=== PATIENT | male | born 1955 | race Caucasian/White ===

== ENCOUNTER 2019-08-27 06:20 | Inpatient (IN) ==
[~2019-08-27 06:20] MED LIST: Vancomycin 1,000 MG, Sodium Chloride IRRigation 1,000 ML IR ONE
[2019-08-27] MEDS ORDERED: Acetaminophen IV 1,000 MG/100 ML INFUS..BTL IVPB ONE (07:08)
[2019-08-27] MEDS ORDERED: *HR* Phenylephrine 10 MG/ML VIAL ONE (07:08)
[2019-08-27] MEDS ORDERED: *HR* Succinylcholine 200 MG/10 ML VIAL IVP ONE (07:08)
[2019-08-27] MEDS ORDERED: Famotidine 20 MG/2 ML VIAL IVP ONE (07:08)
[2019-08-27] MEDS ORDERED: traMADol 50 MG TABLET PO ONE (07:09)
[2019-08-27] MEDS ORDERED: Heparin 1,000 UNITS/500 mL 0 ML ONE (07:09)
[2019-08-27] MEDS ORDERED: Ringers Solution, Lactated 1,000 ML IVC SCH (07:15)
[2019-08-27] MEDS ORDERED: CeFAZolin Syr 2,000MG/20 ML 2,000 MG/20 ML SYRINGE IVPB ONE (07:48)
[2019-08-27] MEDS ORDERED: *HR* Remifentanil 2 MG VIAL IVP ONE (08:35)
[2019-08-27] MEDS ORDERED: *HR* Midazolam HCl 2 MG/2 ML VIAL ONE (08:38)
[2019-08-27] MEDS ORDERED: *HR* FentaNYL (PF) 100 MCG/2 ML VIAL ONE ×2 (08:38→10:02)
[2019-08-27] MEDS ORDERED: *HR* PHENYLEPHRINE 1,000 MCG/10 ML SYRINGE IVP ONE (08:40)
[2019-08-27] MEDS ORDERED: EPHEDrine 50 MG/ML VIAL ONE (08:40)
[2019-08-27] MEDS ORDERED: *HR* Propofol 200 MG/20 ML VIAL IVP ONE ×2 (08:42→11:25)
[2019-08-27] MEDS ORDERED: Lidocaine -MPF 2% 2 ML VIAL ONE (08:42)
[2019-08-27] MEDS ORDERED: Dexamethasone 4 MG/ML VIAL ONE (08:45)
[2019-08-27] MEDS ORDERED: *HR* Heparin 5,000 UNIT/ML VIAL ONE (08:45)
[2019-08-27] MEDS ORDERED: Ondansetron 4 MG/2 ML VIAL ONE (08:45)
[2019-08-27] MEDS ORDERED: Protamine Sulfate 50 MG/5 ML VIAL IVP ONE (09:45)
[2019-08-27] MEDS ORDERED: Bupivacaine-MPF 0.25% 10 ML VIAL ONE (09:45)
[2019-08-27] MEDS ORDERED: Heparin 1,000 UNITS/500 mL 1,000 ML ONE (09:46)
[2019-08-27] MEDS ORDERED: *HR* Labetalol 20 MG/4 ML SYRINGE IVP PRN (14:01)
[2019-08-27] MEDS ORDERED: Dextrose Gel 15 GM/37.5 ML TUBE PO PRN ×2 (14:01)
[2019-08-27] MEDS ORDERED: Ondansetron 4 MG/2 ML VIAL IVP PRN (14:01)
[2019-08-27] MEDS ORDERED: *HR* OxyCODONE Immed Rel 5 MG TABLET PO PRN (14:01)
[2019-08-27] MEDS ORDERED: D5% in Water 1,000 ML IVC PRN (14:01)
[2019-08-27] MEDS ORDERED: *HR* HYDROcodone/Acet 5/325 mg TABLET PO PRN (14:01)
[2019-08-27] MEDS ORDERED: *HR* Dextrose 50 % in Water (Syg) 50 ML SYRINGE IVP PRN (14:01)
[2019-08-27] MEDS ORDERED: Naloxone 0.4 MG/ML INJ IVP PRN (14:01)
[2019-08-27] MEDS ORDERED: Acetaminophen 325 MG TABLET PO PRN (14:01)
[2019-08-27] MEDS ORDERED: 0.9 % Sodium Chloride 1,000 ML IVC SCH (14:01)
[2019-08-27] MEDS: *HR* Metoprolol 5 MG/5 ML VIAL IVP SCH (16:42)
[2019-08-27] MEDS: Insulin LISPRO 300 UNITS/3 ML VIAL SQ SCH (17:40)
[2019-08-27] MEDS ORDERED: Insulin LISPRO 300 UNITS/3 ML VIAL SQ SCH (21:00)
[2019-08-28] MEDS: *HR* Metoprolol 5 MG/5 ML VIAL IVP SCH ×2 (02:50→05:12)
[2019-08-28] MEDS ORDERED: *HR* Heparin 5,000 UNIT/ML VIAL SQ SCH ×2 (06:00)
[2019-08-28] MEDS: Insulin LISPRO 300 UNITS/3 ML VIAL SQ SCH (08:01)
[2019-08-28] MEDS ORDERED: Aspirin Enteric Coated 81 MG Tablet PO SCH (09:00)
[2019-08-28 11:35] VITALS: BP 179/83
[2019-08-28] MEDS ORDERED: amLODIPine 5 MG TABLET PO SCH (21:00)
== END 2019-08-28 12:00 | disposition home or self-care (01) | DRG 39 ==
LOC: SAMDAY 06:20 → 2NNU 13:52
PROVIDERS: ADMIT Surgery; ATTEND Surgery

== ENCOUNTER 2021-08-30 09:58 | Inpatient (IN) ==
[2021-08-30] MEDS ORDERED: hydrALAZINE 10 MG TABLET PO ONE ×2 (10:47→12:54)
[2021-08-30 11:24] LABS: Basophils # 0.1 K/mcL (0.0-0.2); Basophils % 0.7 %; Eosinophils # 0.3 K/mcL (0.0-0.6); Eosinophils % 2.7 %; Hemoglobin 9.9 g/dL (12.9-16.9); Immature Granulocytes % 0.4 % (0-4); Lymphocytes # 1.6 K/mcL (0.6-4.6); Lymphocytes % 16.9 %; Mean Corpuscular HGB Conc 34.1 g/dL (31.6-35.5); Mean Corpuscular Hemoglobin 30.3 pg (28.0-33.3); Mean Corpuscular Volume 88.7 fL (83.0-100.0); Monocytes # 0.9 K/mcL (0.0-1.3); Monocytes % 9.3 %; Neutrophils # 6.4 K/mcL (1.6-8.9); Platelet Count 291 K/mcL (140-400); Red Blood Count 3.27 M/mcL (4.19-5.50); Red Cell Distribution Width 12.3 % (11.5-14.5); White Blood Count 9.2 K/mcL (4.3-11.1)
[2021-08-30 11:32] LABS: Prothrombin Time 11.3 Seconds (9.4-12.1)
[2021-08-30 11:47] LABS: Calcium 8.5 mg/dL (8.6-10.3); Potassium 3.8 mEq/L (3.5-5.1); Troponin I 0.03 ng/mL (< 0.04)
[2021-08-30 11:57] LABS: Activated Partial Thrombo Time 29.9 Seconds (26.0-36.0)
[2021-08-30] MEDS ORDERED: 0.9 % Sodium Chloride 1,000 ML IVC ONE (13:11)
[2021-08-30] MEDS ORDERED: Acetaminophen 325 MG TABLET PO PRN (13:48)
[2021-08-30] MEDS ORDERED: D5% in Water 1,000 ML IVC PRN (13:48)
[2021-08-30] MEDS ORDERED: Naloxone 0.4 MG/ML INJ IVP PRN (13:48)
[2021-08-30] MEDS ORDERED: *HR* Dextrose 50 % in Water (Syg) 50 ML SYRINGE IVP PRN (13:48)
[2021-08-30] MEDS ORDERED: Dextrose Gel 15 GM/37.5 ML TUBE PO PRN ×2 (13:48)
[2021-08-30] MEDS ORDERED: Ondansetron 4 MG/2 ML VIAL IVP PRN (13:48)
[2021-08-30] MEDS ORDERED: amLODIPine 5 MG TABLET PO ONE (13:54)
[2021-08-30] MEDS: 0.9 % Sodium Chloride 1,000 ML IVC SCH (16:57)
[2021-08-30] MEDS: Insulin LISPRO 300 UNITS/3 ML VIAL SUBQ SCH (17:54)
[2021-08-30] MEDS: *HR* Heparin 5,000 UNIT/ML VIAL SQ SCH (18:27)
[2021-08-30] MEDS: Melatonin 3 MG TABLET PO SCH (19:50)
[2021-08-31 01:57] LABS: Basophils % 0.3 %; Eosinophils # 0.2 K/mcL (0.0-0.6); Eosinophils % 2.2 %; Hematocrit 26.5 % (37.5-50.1); Hemoglobin 9.1 g/dL (12.9-16.9); Immature Granulocytes % 0.3 % (0-4); Lymphocytes % 21.6 %; Mean Corpuscular HGB Conc 34.3 g/dL (31.6-35.5); Mean Corpuscular Hemoglobin 30.6 pg (28.0-33.3); Mean Corpuscular Volume 89.2 fL (83.0-100.0); Mean Platelet Volume 10.4 fL (9.4-12.4); Monocytes # 0.9 K/mcL (0.0-1.3); Monocytes % 9.8 %; Neutrophils # 6.2 K/mcL (1.6-8.9); Platelet Count 280 K/mcL (140-400); Red Blood Count 2.97 M/mcL (4.19-5.50); Red Cell Distribution Width 12.4 % (11.5-14.5); Segmented Neutrophils % 65.8 %; White Blood Count 9.4 K/mcL (4.3-11.1)
[2021-08-31 02:23] LABS: BUN/Creatinine Ratio 11 (6-26); Blood Urea Nitrogen 38 mg/dL (8-23); Carbon Dioxide 23 mEq/L (23-29); Chloride 107 mEq/L (98-107); Chol/HDL Ratio 5.6 (0-4.9); Cholesterol 158 mg/dL (< 200); Glucose 270 mg/dL (70-105); HDL Cholesterol 28 mg/dL (40-59); Osmolality,Calculated 311 (280-300); Potassium 3.5 mEq/L (3.5-5.1); Sodium 141 mEq/L (136-145); Triglycerides 551 mg/dL (< 150); eGFR For African Americans 21 (> 60); eGFR For Non-African Americans 18 (> 60)
[2021-08-31 02:24] LABS: Iron 46 mcg/dL (65-175)
[2021-08-31 02:36] LABS: Ferritin 47 ng/mL (20-250)
[2021-08-31] MEDS: *HR* Heparin 5,000 UNIT/ML VIAL SQ SCH ×2 (04:05→18:05)
[2021-08-31 07:15] LABS: Sodium, Urine 68.7 mEq/L
[2021-08-31] MEDS: Insulin LISPRO 300 UNITS/3 ML VIAL SUBQ SCH ×3 (08:08→18:04)
[2021-08-31] MEDS: amLODIPine 5 MG TABLET PO SCH (08:08)
[2021-08-31] MEDS: 0.9 % Sodium Chloride 1,000 ML IVC SCH ×2 (08:14→21:12)
[2021-08-31 17:39] LABS: Bacteria,Urine Few per hpf (None-Few); Mucus,Urine Few per lpf (None-Few); RBC,Urine 0-3 per hpf (0-3); WBC,Urine 0-3 per hpf (0-3)
[2021-08-31 17:51] LABS: Bilirubin,Urine Negative (Negative); Blood,Urine Trace (Negative); Clarity,Urine Clear (Clear); Color,Urine Colorless (Yellow); Glucose,Urine (UA) 150 mg/dL (Normal); Ketones,Urine Negative (Negative); Leukocyte Esterase,Urine Negative (Negative); Nitrite,Urine Negative (Negative); Protein,Urine >=300 mg/dL (Neg-Trace); Specific Gravity,Urine 1.013 (1.010-1.025); Urobilinogen,Urine Normal (Normal)
[2021-08-31 18:10] LABS: Creatinine,Urine 64 mg/dL; Microalbumin,Urine > 1350 mg/L; Protein/Creatinine Ratio,Urine 4.95 mg/mg (0.00-0.20)
[2021-08-31 19:15] LABS: % Iron Saturation 14 % (20-55); Transferrin 235 mg/dL (203-362)
[2021-08-31] MEDS: Melatonin 3 MG TABLET PO SCH (21:11)
[2021-09-01] MEDS: 0.9 % Sodium Chloride 1,000 ML IVC SCH ×2 (03:03→04:58)
[2021-09-01] MEDS: *HR* Heparin 5,000 UNIT/ML VIAL SQ SCH ×2 (04:57→17:02)
[2021-09-01 07:30] LABS: Basophils % 0.3 %; Eosinophils # 0.2 K/mcL (0.0-0.6); Eosinophils % 2.7 %; Hematocrit 26.1 % (37.5-50.1); Hemoglobin 8.9 g/dL (12.9-16.9); Immature Granulocytes % 0.5 % (0-4); Lymphocytes # 1.9 K/mcL (0.6-4.6); Mean Corpuscular HGB Conc 34.1 g/dL (31.6-35.5); Mean Corpuscular Hemoglobin 30.3 pg (28.0-33.3); Mean Corpuscular Volume 88.8 fL (83.0-100.0); Mean Platelet Volume 10.3 fL (9.4-12.4); Monocytes # 0.6 K/mcL (0.0-1.3); Monocytes % 7.3 %; Platelet Count 247 K/mcL (140-400); Red Blood Count 2.94 M/mcL (4.19-5.50); Red Cell Distribution Width 12.5 % (11.5-14.5); Segmented Neutrophils % 68.2 %; White Blood Count 8.8 K/mcL (4.3-11.1)
[2021-09-01 07:34] LABS: Potassium 3.5 mEq/L (3.5-5.1)
[2021-09-01 07:35] LABS: Calcium 8.4 mg/dL (8.6-10.3); Phosphorous 3.1 mg/dL (2.7-4.5); Uric Acid 6.7 mg/dL (2.3-7.6)
[2021-09-01 07:47] LABS: Thyroid Stimulating Hormone 3.851 mcIU/mL (0.340-5.600)
[2021-09-01] MEDS: amLODIPine 5 MG TABLET PO SCH (08:08)
[2021-09-01] MEDS: Insulin LISPRO 300 UNITS/3 ML VIAL SUBQ SCH ×3 (08:09→17:03)
[2021-09-01] MEDS: hydrALAZINE 25 MG TABLET PO SCH ×2 (08:16→17:03)
[2021-09-01] MEDS ORDERED: Perflutren Lipid Microsphere 1.3 ML in 0.9 % Sodium Chloride 8.7 ML IVP PRN (17:04)
[2021-09-01] MEDS: Melatonin 3 MG TABLET PO SCH (20:39)
[2021-09-01 22:44] LABS: Hepatitis B Surface Antigen Nonreactive (Nonreactive)
[2021-09-01 23:12] LABS: Hepatitis C Virus Antibody Nonreactive (Nonreactive)
[2021-09-01 23:13] LABS: Hepatitis B Core IgM Nonreactive (Nonreactive)
[2021-09-01 23:17] LABS: Hepatitis A Antibody IgM Nonreactive (Nonreactive)
[2021-09-02] MEDS: hydrALAZINE 25 MG TABLET PO SCH ×3 (00:06→14:28)
[2021-09-02 01:22] LABS: Vitamin D 25 Hydroxy 12 ng/mL (30-80)
[2021-09-02] MEDS: *HR* Heparin 5,000 UNIT/ML VIAL SQ SCH ×2 (05:26→14:56)
[2021-09-02] MEDS: Insulin LISPRO 300 UNITS/3 ML VIAL SUBQ SCH ×3 (09:11→15:26)
[2021-09-02] MEDS: amLODIPine 5 MG TABLET PO SCH (09:23)
[2021-09-02] MEDS ORDERED: Ergocalciferol (VIT D2) 50,000 UNIT (1.25MG) CAP PO SCH (12:45)
[2021-09-02 13:05] LABS: Basophils % 0.2 %; Eosinophils # 0.3 K/mcL (0.0-0.6); Eosinophils % 1.8 %; Hematocrit 28.2 % (37.5-50.1); Hemoglobin 9.6 g/dL (12.9-16.9); Immature Granulocytes % 0.4 % (0-4); Lymphocytes # 1.8 K/mcL (0.6-4.6); Lymphocytes % 12.5 %; Mean Corpuscular Hemoglobin 30.5 pg (28.0-33.3); Mean Corpuscular Volume 89.5 fL (83.0-100.0); Mean Platelet Volume 10.4 fL (9.4-12.4); Monocytes % 6.7 %; Platelet Count 291 K/mcL (140-400); Red Blood Count 3.15 M/mcL (4.19-5.50); Red Cell Distribution Width 12.7 % (11.5-14.5); Segmented Neutrophils % 78.4 %
[2021-09-02 13:06] LABS: Monocytes # 0.9 K/mcL (0.0-1.3); Neutrophils # 11.1 K/mcL (1.6-8.9); White Blood Count 14.1 K/mcL (4.3-11.1)
[2021-09-02 13:35] LABS: Calcium 8.3 mg/dL (8.6-10.3); Potassium 3.8 mEq/L (3.5-5.1)
[2021-09-02 14:11] LABS: Magnesium 1.3 mg/dL (1.6-2.6)
[2021-09-02] MEDS ORDERED: cloNIDine HCL 0.1 MG TABLET PO SCH (15:00)
[2021-09-02 15:41] VITALS: BP 181/74; PULSE 82; TEMP 97.9; O2SAT 95
[2021-09-05 08:06] LABS: Alpha 2 Globulin (PEP) 1.19 g/dL (0.48-1.05); Beta Globulin (PEP) 0.82 g/dL (0.48-1.10)
[2021-09-05 10:45] LABS: IFE Reflexed IFE Done; Immunoglobulin A 50 mg/dL (68-408); Immunoglobulin G 278 mg/dL (768-1632); Immunoglobulin M 219 mg/dL (35-263)
== END 2021-09-02 16:51 | disposition home or self-care (01) | DRG 684 ==
LOC: EMEROOARM 09:58 → 2ANU 09:58 → SUATTDRO 15:41 → 2ANU 16:07
PROVIDERS: ADMIT Pharmacist; ATTEND Hospitalist

== ENCOUNTER 2021-10-19 09:21 | Inpatient (IN) ==
[2021-10-19 11:33] LABS: Basophils % 0.2 %; Eosinophils # 0.1 K/mcL (0.0-0.6); Eosinophils % 1.8 %; Hematocrit 30.3 % (37.5-50.1); Hemoglobin 9.7 g/dL (12.9-16.9); Immature Granulocytes % 0.2 % (0-4); Lymphocytes # 1.5 K/mcL (0.6-4.6); Lymphocytes % 29.9 %; Mean Corpuscular Hemoglobin 28.9 pg (28.0-33.3); Mean Corpuscular Volume 90.2 fL (83.0-100.0); Mean Platelet Volume 10.5 fL (9.4-12.4); Monocytes # 0.6 K/mcL (0.0-1.3); Monocytes % 12.5 %; Platelet Count 222 K/mcL (140-400); Red Blood Count 3.36 M/mcL (4.19-5.50); Red Cell Distribution Width 12.9 % (11.5-14.5); Segmented Neutrophils % 55.4 %
[2021-10-19 11:44] LABS: Neutrophils # 2.8 K/mcL (1.6-8.9)
[2021-10-19 12:02] LABS: Calcium 8.7 mg/dL (8.6-10.3); Potassium 3.7 mEq/L (3.5-5.1)
[2021-10-19 12:08] LABS: Influenza A PCR Negative (Negative); Influenza B PCR Negative (Negative); Resp. Syncytial Virus PCR Negative (Negative)
[2021-10-19 12:12] LABS: SARS-CoV-2 by PCR (In House) Positive (Negative)
[2021-10-19 12:16] LABS: Troponin I 0.25 ng/mL (< 0.04)
[2021-10-19] MEDS ORDERED: Aspirin 325 MG TABLET PO ONE (12:18)
[2021-10-19] MEDS ORDERED: Furosemide 40 MG/4 ML VIAL IVP ONE (12:54)
[2021-10-19] MEDS ORDERED: Naloxone 0.4 MG/ML INJ IVP PRN (13:01)
[2021-10-19] MEDS ORDERED: Ondansetron 4 MG/2 ML VIAL IVP PRN (13:01)
[2021-10-19] MEDS ORDERED: Acetaminophen 325 MG TABLET PO PRN (13:01)
[2021-10-19] MEDS ORDERED: *HR* Heparin 5,000 UNIT/ML VIAL IVP PRN ×2 (13:05)
[2021-10-19] MEDS ORDERED: *HR* Heparin 5,000 UNIT/ML VIAL IVP ONE (13:05)
[2021-10-19 13:49] LABS: Hematocrit 33.1 % (37.5-50.1); Hemoglobin 10.4 g/dL (12.9-16.9); Mean Corpuscular HGB Conc 31.4 g/dL (31.6-35.5); Mean Corpuscular Hemoglobin 28.7 pg (28.0-33.3); Mean Corpuscular Volume 91.2 fL (83.0-100.0); Mean Platelet Volume 10.4 fL (9.4-12.4); Platelet Count 236 K/mcL (140-400); Red Blood Count 3.63 M/mcL (4.19-5.50); Red Cell Distribution Width 12.9 % (11.5-14.5); White Blood Count 4.9 K/mcL (4.3-11.1)
[2021-10-19 14:02] LABS: Heparin anti-factor XA UFH 0.04 IU/mL (0.30-0.70); Prothrombin Time 11.1 Seconds (9.4-12.1)
[2021-10-19] MEDS: Heparin 25,000UNIT/250ML 1/2NS 25,000 UNIT/250 ML IV.SOLN IVC SCH (15:41)
[2021-10-19] MEDS ORDERED: *HR* Labetalol 20 MG/4 ML SYRINGE IVP PRN (15:59)
[2021-10-19] MEDS ORDERED: Perflutren Lipid Microsphere 1.3 ML in 0.9 % Sodium Chloride 8.7 ML IVP PRN (16:06)
[2021-10-19] MEDS ORDERED: *HR* Dextrose 50 % in Water (Syg) 50 ML SYRINGE IVP PRN (16:10)
[2021-10-19] MEDS ORDERED: D5% in Water 1,000 ML IVC PRN (16:10)
[2021-10-19] MEDS ORDERED: Dextrose Gel 15 GM/37.5 ML TUBE PO PRN ×2 (16:10)
[2021-10-19] MEDS: Insulin LISPRO 300 UNITS/3 ML VIAL SUBQ SCH ×2 (17:05→23:11)
[2021-10-19] MEDS: hydrALAZINE 25 MG TABLET PO SCH (17:05)
[2021-10-19 20:18] LABS: Albumin 3.5 g/dL (3.5-5.7); Albumin/Globulin Ratio 1.3 (1.1-2.2); Bilirubin,Indirect 0.3 mg/dL (0.0-1.0); Bilirubin,Total 0.3 mg/dL (0.3-1.0); Globulin 2.7 g/dL (2.4-3.5); Total Protein 6.2 g/dL (6.4-8.9)
[2021-10-19] MEDS: cloNIDine HCL 0.1 MG TABLET PO SCH (20:48)
[2021-10-20] MEDS: hydrALAZINE 25 MG TABLET PO SCH ×4 (00:02→23:19)
[2021-10-20 05:58] LABS: Basophils % 0.2 %; Eosinophils # 0.1 K/mcL (0.0-0.6); Eosinophils % 1.7 %; Hematocrit 29.6 % (37.5-50.1); Hemoglobin 9.3 g/dL (12.9-16.9); Immature Granulocytes % 0.2 % (0-4); Lymphocytes # 1.7 K/mcL (0.6-4.6); Lymphocytes % 36.7 %; Mean Corpuscular HGB Conc 31.4 g/dL (31.6-35.5); Mean Corpuscular Hemoglobin 28.4 pg (28.0-33.3); Mean Corpuscular Volume 90.5 fL (83.0-100.0); Mean Platelet Volume 10.3 fL (9.4-12.4); Monocytes # 0.5 K/mcL (0.0-1.3); Monocytes % 9.6 %; Neutrophils # 2.4 K/mcL (1.6-8.9); Platelet Count 212 K/mcL (140-400); Red Blood Count 3.27 M/mcL (4.19-5.50); Red Cell Distribution Width 12.8 % (11.5-14.5); Segmented Neutrophils % 51.6 %; White Blood Count 4.7 K/mcL (4.3-11.1)
[2021-10-20 06:05] LABS: Heparin anti-factor XA UFH 0.44 IU/mL (0.30-0.70)
[2021-10-20 06:16] LABS: Albumin 3.2 g/dL (3.5-5.7); Albumin/Globulin Ratio 1.3 (1.1-2.2); Bilirubin,Indirect 0.2 mg/dL (0.0-1.0); Bilirubin,Total 0.2 mg/dL (0.3-1.0); Calcium 8.3 mg/dL (8.6-10.3); Globulin 2.4 g/dL (2.4-3.5); Magnesium 1.9 mg/dL (1.6-2.6); Phosphorous 5.2 mg/dL (2.7-4.5); Potassium 3.7 mEq/L (3.5-5.1); Total Protein 5.6 g/dL (6.4-8.9)
[2021-10-20 06:37] LABS: Folate 11.7 ng/mL (3.0-16.0)
[2021-10-20] MEDS ORDERED: Cyanocobalamin (B-12) 1,000 MCG/ML VIAL SQ ONE (07:41)
[2021-10-20] MEDS: Insulin LISPRO 300 UNITS/3 ML VIAL SUBQ SCH ×4 (09:20→20:23)
[2021-10-20] MEDS: amLODIPine 5 MG TABLET PO SCH (09:21)
[2021-10-20] MEDS: Isosorbide MONOnitrate (24 HR) 30 MG TAB.ER.24H PO SCH (09:22)
[2021-10-20] MEDS: cloNIDine HCL 0.1 MG TABLET PO SCH ×3 (09:22→20:24)
[2021-10-20] MEDS ORDERED: Perflutren Lipid Microsphere 1.3 ML in 0.9 % Sodium Chloride 8.7 ML IVP PRN (13:54)
[2021-10-20] MEDS: Pantoprazole 40 MG VIAL IVP SCH (15:56)
[2021-10-20] MEDS: Heparin 25,000UNIT/250ML 1/2NS 25,000 UNIT/250 ML IV.SOLN IVC SCH (18:11)
[2021-10-21 02:24] LABS: Basophils % 0.2 %; Eosinophils # 0.1 K/mcL (0.0-0.6); Eosinophils % 1.4 %; Hematocrit 29.1 % (37.5-50.1); Hemoglobin 9.3 g/dL (12.9-16.9); Immature Granulocytes % 0.2 % (0-4); Lymphocytes # 1.5 K/mcL (0.6-4.6); Lymphocytes % 25.2 %; Mean Corpuscular Hemoglobin 29.4 pg (28.0-33.3); Mean Corpuscular Volume 92.1 fL (83.0-100.0); Mean Platelet Volume 10.6 fL (9.4-12.4); Monocytes # 0.5 K/mcL (0.0-1.3); Monocytes % 7.7 %; Neutrophils # 3.9 K/mcL (1.6-8.9); Platelet Count 206 K/mcL (140-400); Red Blood Count 3.16 M/mcL (4.19-5.50); Red Cell Distribution Width 12.8 % (11.5-14.5); Segmented Neutrophils % 65.3 %; White Blood Count 5.9 K/mcL (4.3-11.1)
[2021-10-21 02:47] LABS: Calcium 8.2 mg/dL (8.6-10.3); Magnesium 1.7 mg/dL (1.6-2.6); Potassium 3.6 mEq/L (3.5-5.1)
[2021-10-21] MEDS: Insulin LISPRO 300 UNITS/3 ML VIAL SUBQ SCH ×4 (09:30→22:01)
[2021-10-21] MEDS: amLODIPine 5 MG TABLET PO SCH (09:31)
[2021-10-21] MEDS: Pantoprazole 40 MG VIAL IVP SCH (09:31)
[2021-10-21] MEDS: cloNIDine HCL 0.1 MG TABLET PO SCH ×3 (09:31→22:22)
[2021-10-21] MEDS: Isosorbide MONOnitrate (24 HR) 30 MG TAB.ER.24H PO SCH (09:31)
[2021-10-21] MEDS: hydrALAZINE 25 MG TABLET PO SCH ×2 (09:31→16:51)
[2021-10-21] MEDS: Apixaban 5 MG TABLET PO SCH (22:00)
[2021-10-22] MEDS: hydrALAZINE 25 MG TABLET PO SCH ×3 (00:36→14:08)
[2021-10-22] MEDS ORDERED: *HR* Enoxaparin 30 MG/0.3 ML SYRINGE SQ SCH (07:00)
[2021-10-22] MEDS ORDERED: NIFEdipine XL (24 HR) 60 MG TAB.ER.24 PO SCH (09:00)
[2021-10-22] MEDS ORDERED: Isosorbide MONOnitrate (24 HR) 30 MG TAB.ER.24H PO SCH (09:00)
[2021-10-22] MEDS: Apixaban 5 MG TABLET PO SCH (09:07)
[2021-10-22] MEDS: cloNIDine HCL 0.1 MG TABLET PO SCH ×2 (09:07→14:08)
[2021-10-22] MEDS: Insulin LISPRO 300 UNITS/3 ML VIAL SUBQ SCH ×2 (09:08→12:36)
[2021-10-22 12:25] VITALS: BP 141/63; PULSE 74; TEMP 98.5; O2SAT 92
[2021-10-22] MEDS ORDERED: Apixaban 5 MG TABLET PO SCH (21:00)
== END 2021-10-22 14:22 | disposition home or self-care (01) | DRG 177 ==
LOC: 2ANU 09:21 → EMEROOARM 09:21 → SUATTDRO 14:05 → 2ANU 14:59
PROVIDERS: ADMIT Family Medicine; ATTEND Pharmacist

== ENCOUNTER 2022-02-01 18:25 | Inpatient (IN) ==
[2022-02-01 21:26] LABS: Basophils # 0.1 K/mcL (0.0-0.2); Basophils % 0.6 %; Eosinophils # 0.4 K/mcL (0.0-0.6); Eosinophils % 4.1 %; Hematocrit 35.7 % (37.5-50.1); Hemoglobin 13.2 g/dL (12.9-16.9); Immature Granulocytes % 0.6 % (0-4); Lymphocytes % 18.8 %; Mean Corpuscular Volume 86.4 fL (83.0-100.0); Mean Platelet Volume 9.9 fL (9.4-12.4); Monocytes # 0.9 K/mcL (0.0-1.3); Monocytes % 7.9 %; Neutrophils # 7.4 K/mcL (1.6-8.9); Platelet Count 371 K/mcL (140-400); Red Blood Count 4.13 M/mcL (4.19-5.50); Red Cell Distribution Width 14.2 % (11.5-14.5); White Blood Count 10.9 K/mcL (4.3-11.1)
[2022-02-01 22:03] LABS: Alanine Aminotransferase 6 Units/L (7-52); Albumin/Globulin Ratio 1.3 (1.1-2.2); Alkaline Phosphatase 78 Units/L (34-104); Aspartate Amino Transferase 12 Units/L (13-39); BUN/Creatinine Ratio 7 (6-26); Bilirubin,Indirect 0.3 mg/dL (0.0-1.0); Bilirubin,Total 0.3 mg/dL (0.3-1.0); Blood Urea Nitrogen 39 mg/dL (8-23); Calcium 8.2 mg/dL (8.6-10.3); Carbon Dioxide 20 mEq/L (23-29); Chloride 107 mEq/L (98-107); Globulin 2.4 g/dL (2.4-3.5); Glucose 210 mg/dL (70-105); Osmolality,Calculated 304 (280-300); Potassium 4.1 mEq/L (3.5-5.1); Sodium 139 mEq/L (136-145); Total Protein 5.4 g/dL (6.4-8.9); Troponin I < 0.03 ng/mL (< 0.04); eGFR For African Americans 13 (> 60); eGFR For Non-African Americans 11 (> 60)
[2022-02-01] MEDS ORDERED: Bumetanide 1 MG/4 ML VIAL IVP ONE (22:07)
[2022-02-01] MEDS ORDERED: Naloxone 0.4 MG/ML INJ IVP PRN (23:22)
[2022-02-01] MEDS ORDERED: Ondansetron 4 MG/2 ML VIAL IVP PRN (23:22)
[2022-02-01] MEDS ORDERED: Melatonin 3 MG TABLET PO PRN (23:22)
[2022-02-01] MEDS ORDERED: Acetaminophen 325 MG TABLET PO PRN (23:22)
[2022-02-02] MEDS ORDERED: *HR* Dextrose 50 % in Water (Syg) 50 ML SYRINGE IVP PRN (04:50)
[2022-02-02] MEDS ORDERED: Dextrose 4 GM Chewable Tablets PO PRN ×2 (04:50)
[2022-02-02] MEDS ORDERED: D5% in Water 1,000 ML IVC PRN (04:50)
[2022-02-02 05:21] LABS: Basophils # 0.1 K/mcL (0.0-0.2); Basophils % 0.5 %; Eosinophils # 0.3 K/mcL (0.0-0.6); Eosinophils % 3.6 %; Immature Granulocytes % 0.7 % (0-4); Lymphocytes # 1.8 K/mcL (0.6-4.6); Lymphocytes % 18.6 %; Mean Corpuscular HGB Conc 33.3 g/dL (31.6-35.5); Mean Corpuscular Volume 87.1 fL (83.0-100.0); Mean Platelet Volume 10.4 fL (9.4-12.4); Monocytes # 0.8 K/mcL (0.0-1.3); Monocytes % 8.1 %; Neutrophils # 6.5 K/mcL (1.6-8.9); Platelet Count 275 K/mcL (140-400); Red Blood Count 3.79 M/mcL (4.19-5.50); Red Cell Distribution Width 14.2 % (11.5-14.5); Segmented Neutrophils % 68.5 %; White Blood Count 9.5 K/mcL (4.3-11.1)
[2022-02-02 05:51] LABS: Alanine Aminotransferase 7 Units/L (7-52); Albumin 2.4 g/dL (3.5-5.7); Alkaline Phosphatase 67 Units/L (34-104); Aspartate Amino Transferase 9 Units/L (13-39); BUN/Creatinine Ratio 8 (6-26); Bilirubin,Total 0.2 mg/dL (0.3-1.0); Blood Urea Nitrogen 40 mg/dL (8-23); Calcium 7.9 mg/dL (8.6-10.3); Carbon Dioxide 18 mEq/L (23-29); Chloride 112 mEq/L (98-107); Globulin 2.4 g/dL (2.4-3.5); Glucose 147 mg/dL (70-105); Magnesium 1.9 mg/dL (1.6-2.6); Osmolality,Calculated 306 (280-300); Phosphorous 5.2 mg/dL (2.7-4.5); Potassium 3.4 mEq/L (3.5-5.1); Sodium 142 mEq/L (136-145); Total Protein 4.8 g/dL (6.4-8.9); Troponin I < 0.03 ng/mL (< 0.04); eGFR For African Americans 13 (> 60); eGFR For Non-African Americans 11 (> 60)
[2022-02-02] MEDS ORDERED: Insulin LISPRO 300 UNITS/3 ML VIAL SUBQ SCH (06:00)
[2022-02-02] MEDS ORDERED: Bumetanide 1 MG/4 ML VIAL IVP SCH (09:00)
[2022-02-02] MEDS: Insulin LISPRO 300 UNITS/3 ML VIAL SUBQ SCH ×3 (11:00→21:26)
[2022-02-02] MEDS: amLODIPine 5 MG TABLET PO SCH (12:31)
[2022-02-02] MEDS ORDERED: Albumin 25% 25gram/100mL 25 GM/100 ML IV.SOLN IVPB ONE (14:28)
[2022-02-02] MEDS: Furosemide 40 MG/4 ML VIAL IVP SCH (17:08)
[2022-02-02] MEDS: cloNIDine HCL 0.1 MG TABLET PO SCH (21:28)
[2022-02-03 05:37] LABS: Basophils # 0.1 K/mcL (0.0-0.2); Basophils % 0.5 %; Eosinophils # 0.3 K/mcL (0.0-0.6); Eosinophils % 2.9 %; Hematocrit 33.3 % (37.5-50.1); Hemoglobin 11.1 g/dL (12.9-16.9); Immature Granulocytes % 0.7 % (0-4); Lymphocytes % 19.9 %; Mean Corpuscular HGB Conc 33.3 g/dL (31.6-35.5); Mean Corpuscular Volume 86.9 fL (83.0-100.0); Mean Platelet Volume 10.4 fL (9.4-12.4); Monocytes # 0.9 K/mcL (0.0-1.3); Monocytes % 8.4 %; Neutrophils # 6.9 K/mcL (1.6-8.9); Platelet Count 258 K/mcL (140-400); Red Blood Count 3.83 M/mcL (4.19-5.50); Red Cell Distribution Width 14.5 % (11.5-14.5); Segmented Neutrophils % 67.6 %; White Blood Count 10.2 K/mcL (4.3-11.1)
[2022-02-03 05:49] LABS: INR 1.3; Prothrombin Time 14.1 Seconds (9.4-12.1)
[2022-02-03 05:56] LABS: Calcium 8.2 mg/dL (8.6-10.3); Phosphorous 5.2 mg/dL (2.7-4.5); Potassium 3.6 mEq/L (3.5-5.1)
[2022-02-03] MEDS: amLODIPine 5 MG TABLET PO SCH (07:36)
[2022-02-03] MEDS: Insulin LISPRO 300 UNITS/3 ML VIAL SUBQ SCH ×4 (07:36→21:11)
[2022-02-03] MEDS: cloNIDine HCL 0.1 MG TABLET PO SCH ×2 (07:36→21:19)
[2022-02-03] MEDS: Furosemide 40 MG/4 ML VIAL IVP SCH (07:36)
[2022-02-03] MEDS ORDERED: *HR* Heparin 5,000 UNIT/ML VIAL IVP PRN (14:33)
[2022-02-03] MEDS ORDERED: *HR* Heparin 5,000 UNIT/ML VIAL IVP ONE (14:33)
[2022-02-03] MEDS: Heparin 25,000UNIT/250ML 1/2NS 25,000 UNIT/250 ML IV.SOLN IVC SCH (15:00)
[2022-02-03] MEDS: Furosemide 40 MG TABLET PO SCH (16:32)
[2022-02-04 04:39] LABS: Basophils # 0.1 K/mcL (0.0-0.2); Basophils % 0.5 %; Eosinophils # 0.2 K/mcL (0.0-0.6); Eosinophils % 1.6 %; Hematocrit 31.8 % (37.5-50.1); Hemoglobin 10.4 g/dL (12.9-16.9); Immature Granulocytes % 0.5 % (0-4); Lymphocytes # 1.6 K/mcL (0.6-4.6); Lymphocytes % 12.2 %; Mean Corpuscular HGB Conc 32.7 g/dL (31.6-35.5); Mean Corpuscular Hemoglobin 29.3 pg (28.0-33.3); Mean Corpuscular Volume 89.6 fL (83.0-100.0); Mean Platelet Volume 10.5 fL (9.4-12.4); Monocytes % 7.4 %; Neutrophils # 10.1 K/mcL (1.6-8.9); Platelet Count 241 K/mcL (140-400); Red Blood Count 3.55 M/mcL (4.19-5.50); Red Cell Distribution Width 14.4 % (11.5-14.5); Segmented Neutrophils % 77.8 %
[2022-02-04 04:40] LABS: INR 1.1; Prothrombin Time 12.2 Seconds (9.4-12.1)
[2022-02-04 04:53] LABS: Calcium 8.2 mg/dL (8.6-10.3); Magnesium 1.8 mg/dL (1.6-2.6); Phosphorous 4.4 mg/dL (2.7-4.5); Potassium 3.7 mEq/L (3.5-5.1)
[2022-02-04 05:08] LABS: % Iron Saturation 21 % (20-55); Iron 46 mcg/dL (65-175); Transferrin 159 mg/dL (203-362)
[2022-02-04 05:11] LABS: Ferritin 73 ng/mL (20-250)
[2022-02-04] MEDS: *HR* Heparin 5,000 UNIT/ML VIAL IVP PRN (05:15)
[2022-02-04] MEDS: Furosemide 40 MG TABLET PO SCH (09:22)
[2022-02-04] MEDS: Heparin 25,000UNIT/250ML 1/2NS 25,000 UNIT/250 ML IV.SOLN IVC SCH (09:31)
[2022-02-04] MEDS: Insulin LISPRO 300 UNITS/3 ML VIAL SUBQ SCH ×4 (09:32→20:57)
[2022-02-04] MEDS: amLODIPine 5 MG TABLET PO SCH (09:33)
[2022-02-04] MEDS: cloNIDine HCL 0.1 MG TABLET PO SCH ×2 (09:33→20:57)
[2022-02-04] MEDS: Insulin DETEMIR 100 UNIT/ML X5UNITS SUBQ SCH (12:01)
[2022-02-04] MEDS: Loratadine 10 MG TABLET PO SCH (12:57)
[2022-02-04] MEDS: Fluticasone Propionate Nasal 50 MCG/SPRAY BOTTLE NS SCH (15:15)
[2022-02-05 01:16] LABS: Basophils % 0.4 %; Eosinophils # 0.2 K/mcL (0.0-0.6); Eosinophils % 2.3 %; Hematocrit 28.8 % (37.5-50.1); Hemoglobin 9.5 g/dL (12.9-16.9); Immature Granulocytes % 0.8 % (0-4); Lymphocytes # 1.7 K/mcL (0.6-4.6); Lymphocytes % 16.6 %; Mean Corpuscular Hemoglobin 29.3 pg (28.0-33.3); Mean Corpuscular Volume 88.9 fL (83.0-100.0); Mean Platelet Volume 10.5 fL (9.4-12.4); Monocytes # 1.1 K/mcL (0.0-1.3); Neutrophils # 6.9 K/mcL (1.6-8.9); Platelet Count 205 K/mcL (140-400); Red Blood Count 3.24 M/mcL (4.19-5.50); Segmented Neutrophils % 68.9 %; White Blood Count 10.1 K/mcL (4.3-11.1)
[2022-02-05 01:35] LABS: Heparin anti-factor XA UFH 0.24 IU/mL (0.30-0.70); Prothrombin Time 11.1 Seconds (9.4-12.1)
[2022-02-05 01:38] LABS: Calcium 8.1 mg/dL (8.6-10.3); Potassium 3.8 mEq/L (3.5-5.1)
[2022-02-05] MEDS: *HR* Heparin 5,000 UNIT/ML VIAL IVP PRN (02:48)
[2022-02-05] MEDS: Heparin 25,000UNIT/250ML 1/2NS 25,000 UNIT/250 ML IV.SOLN IVC SCH (02:55)
[2022-02-05] MEDS: amLODIPine 5 MG TABLET PO SCH (07:59)
[2022-02-05] MEDS: Insulin LISPRO 300 UNITS/3 ML VIAL SUBQ SCH ×4 (07:59→19:57)
[2022-02-05] MEDS: Loratadine 10 MG TABLET PO SCH (07:59)
[2022-02-05] MEDS: cloNIDine HCL 0.1 MG TABLET PO SCH ×2 (07:59→19:55)
[2022-02-05] MEDS: Fluticasone Propionate Nasal 50 MCG/SPRAY BOTTLE NS SCH (08:00)
[2022-02-05] MEDS ORDERED: *HR* Midazolam HCl 2 MG/2 ML VIAL ONE (13:37)
[2022-02-05] MEDS ORDERED: *HR* Propofol 200 MG/20 ML VIAL IVP ONE (13:37)
[2022-02-05] MEDS ORDERED: *HR* FentaNYL (PF) 100 MCG/2 ML VIAL ONE (13:37)
[2022-02-05] MEDS ORDERED: *HR* Succinylcholine 200 MG/10 ML VIAL IVP ONE (13:38)
[2022-02-05] MEDS ORDERED: *HR* Rocuronium Bromide 50 MG/5 ML VIAL ONE (13:38)
[2022-02-05] MEDS ORDERED: Lidocaine -MPF 2% 2 ML VIAL ONE (13:38)
[2022-02-05] MEDS ORDERED: Ondansetron 4 MG/2 ML VIAL ONE (13:38)
[2022-02-05] MEDS ORDERED: Heparin 1,000 UNITS/500 mL 500 ML ONE (13:41)
[2022-02-05] MEDS ORDERED: Neosporin OINT 15 GM TUBE TP ONE (13:42)
[2022-02-05] MEDS ORDERED: *HR* FentaNYL (PF) 100 MCG/2 ML VIAL IVP PRN (14:24)
[2022-02-05] MEDS ORDERED: Ondansetron 4 MG/2 ML VIAL IVP PRN (14:24)
[2022-02-05] MEDS ORDERED: Albuterol 2.5 MG/3 ML NEBULIZER IH PRN (14:24)
[2022-02-05] MEDS ORDERED: *HR* Metoprolol 5 MG/5 ML VIAL IVP ONE (15:56)
[2022-02-06 06:04] LABS: Basophils % 0.4 %; Eosinophils # 0.2 K/mcL (0.0-0.6); Eosinophils % 2.2 %; Hematocrit 32.2 % (37.5-50.1); Hemoglobin 10.3 g/dL (12.9-16.9); Immature Granulocytes % 0.6 % (0-4); Lymphocytes # 1.1 K/mcL (0.6-4.6); Lymphocytes % 10.3 %; Mean Corpuscular Hemoglobin 28.6 pg (28.0-33.3); Mean Corpuscular Volume 89.4 fL (83.0-100.0); Mean Platelet Volume 10.7 fL (9.4-12.4); Monocytes # 1.2 K/mcL (0.0-1.3); Neutrophils # 8.1 K/mcL (1.6-8.9); Platelet Count 228 K/mcL (140-400); Red Cell Distribution Width 13.9 % (11.5-14.5); Segmented Neutrophils % 75.5 %; White Blood Count 10.7 K/mcL (4.3-11.1)
[2022-02-06 06:19] LABS: Prothrombin Time 11.2 Seconds (9.4-12.1)
[2022-02-06 06:26] LABS: Calcium 8.4 mg/dL (8.6-10.3); Phosphorous 4.8 mg/dL (2.7-4.5); Potassium 4.3 mEq/L (3.5-5.1)
[2022-02-06] MEDS: carvediloL 6.25 MG TABLET PO SCH ×2 (08:22→16:58)
[2022-02-06] MEDS: cloNIDine HCL 0.1 MG TABLET PO SCH ×3 (08:22→19:37)
[2022-02-06] MEDS: amLODIPine 5 MG TABLET PO SCH (08:22)
[2022-02-06] MEDS: Insulin DETEMIR 100 UNIT/ML X5UNITS SUBQ SCH (08:22)
[2022-02-06] MEDS: Insulin LISPRO 300 UNITS/3 ML VIAL SUBQ SCH ×4 (08:23→19:23)
[2022-02-06] MEDS: Fluticasone Propionate Nasal 50 MCG/SPRAY BOTTLE NS SCH (08:23)
[2022-02-06] MEDS: Loratadine 10 MG TABLET PO SCH (08:23)
[2022-02-06] MEDS: Isosorbide MONOnitrate (24 HR) 30 MG TAB.ER.24H PO SCH (10:11)
[2022-02-06 11:00] LABS: Hepatitis B Surface Antibody < 3.10 mIU/mL
[2022-02-06] MEDS: Furosemide 40 MG TABLET PO SCH (11:24)
[2022-02-06] MEDS: NIFEdipine XL (24 HR) 30 MG TAB.ER.24 PO SCH (11:24)
[2022-02-06 11:39] LABS: Hepatitis B Core IgM Nonreactive (Nonreactive)
[2022-02-06 16:06] LABS: Hepatitis B Surface Antigen Nonreactive (Nonreactive)
[2022-02-06] MEDS ORDERED: *HR* Warfarin 5 MG TABLET PO ONE (18:00)
[2022-02-06] MEDS ORDERED: Warfarin perPT PO PRN (18:00)
[2022-02-06] MEDS: Gentamicin Oint 15 GM TUBE TP SCH (19:37)
[2022-02-06] MEDS: Sennosides/Docusate Sodium TABLET PO PRN (19:47)
[2022-02-07 02:05] LABS: Basophils % 0.4 %; Eosinophils # 0.4 K/mcL (0.0-0.6); Eosinophils % 3.6 %; Hematocrit 31.3 % (37.5-50.1); Hemoglobin 10.6 g/dL (12.9-16.9); Immature Granulocytes % 0.7 % (0-4); Lymphocytes # 1.8 K/mcL (0.6-4.6); Lymphocytes % 18.5 %; Mean Corpuscular HGB Conc 33.9 g/dL (31.6-35.5); Mean Corpuscular Hemoglobin 30.2 pg (28.0-33.3); Mean Corpuscular Volume 89.2 fL (83.0-100.0); Mean Platelet Volume 10.7 fL (9.4-12.4); Monocytes % 10.6 %; Neutrophils # 6.4 K/mcL (1.6-8.9); Platelet Count 227 K/mcL (140-400); Red Blood Count 3.51 M/mcL (4.19-5.50); Red Cell Distribution Width 13.7 % (11.5-14.5); Segmented Neutrophils % 66.2 %; White Blood Count 9.6 K/mcL (4.3-11.1)
[2022-02-07 02:08] LABS: INR 0.9; Prothrombin Time 10.5 Seconds (9.4-12.1)
[2022-02-07 02:24] LABS: Estimated Average Glucose 226 mg/dl; Hemoglobin A1C 9.5 %
[2022-02-07 02:26] LABS: Magnesium 1.6 mg/dL (1.6-2.6); Phosphorous 4.8 mg/dL (2.7-4.5); Potassium 3.9 mEq/L (3.5-5.1)
[2022-02-07] MEDS: Insulin LISPRO 300 UNITS/3 ML VIAL SUBQ SCH ×4 (07:55→20:20)
[2022-02-07] MEDS: Fluticasone Propionate Nasal 50 MCG/SPRAY BOTTLE NS SCH (07:55)
[2022-02-07] MEDS: carvediloL 6.25 MG TABLET PO SCH ×2 (07:56→16:19)
[2022-02-07] MEDS: Loratadine 10 MG TABLET PO SCH (07:56)
[2022-02-07] MEDS: Insulin DETEMIR 100 UNIT/ML X5UNITS SUBQ SCH (07:56)
[2022-02-07] MEDS: cloNIDine HCL 0.1 MG TABLET PO SCH ×3 (07:56→20:19)
[2022-02-07] MEDS: Isosorbide MONOnitrate (24 HR) 30 MG TAB.ER.24H PO SCH (07:56)
[2022-02-07] MEDS: NIFEdipine XL (24 HR) 30 MG TAB.ER.24 PO SCH (07:56)
[2022-02-07] MEDS: Furosemide 40 MG TABLET PO SCH (07:56)
[2022-02-07] MEDS ORDERED: NIFEdipine XL (24 HR) 30 MG TAB.ER.24 PO SCH (09:00)
[2022-02-07] MEDS ORDERED: *HR* Heparin 5,000 UNIT/ML VIAL IVP PRN (09:35)
[2022-02-07] MEDS ORDERED: Acetaminophen 325 MG TABLET PO PRN (09:47)
[2022-02-07] MEDS: Heparin 25,000UNIT/250ML 1/2NS 25,000 UNIT/250 ML IV.SOLN IVC SCH (10:56)
[2022-02-07] MEDS ORDERED: *HR* Warfarin 5 MG TABLET PO ONE (18:00)
[2022-02-07] MEDS: *HR* Heparin 5,000 UNIT/ML VIAL IVP PRN (18:34)
[2022-02-07] MEDS: Gentamicin Oint 15 GM TUBE TP SCH (20:20)
[2022-02-08 00:53] LABS: Basophils % 0.4 %; Eosinophils # 0.2 K/mcL (0.0-0.6); Eosinophils % 2.2 %; Hemoglobin 9.3 g/dL (12.9-16.9); Heparin anti-factor XA UFH 0.23 IU/mL (0.30-0.70); Immature Granulocytes % 0.5 % (0-4); Lymphocytes # 2.2 K/mcL (0.6-4.6); Lymphocytes % 22.6 %; Mean Corpuscular HGB Conc 33.2 g/dL (31.6-35.5); Mean Corpuscular Hemoglobin 29.4 pg (28.0-33.3); Mean Corpuscular Volume 88.6 fL (83.0-100.0); Mean Platelet Volume 10.7 fL (9.4-12.4); Monocytes % 9.9 %; Neutrophils # 6.2 K/mcL (1.6-8.9); Platelet Count 200 K/mcL (140-400); Red Blood Count 3.16 M/mcL (4.19-5.50); Red Cell Distribution Width 13.6 % (11.5-14.5); Segmented Neutrophils % 64.4 %; White Blood Count 9.7 K/mcL (4.3-11.1)
[2022-02-08 00:54] LABS: Prothrombin Time 11.5 Seconds (9.4-12.1)
[2022-02-08 01:07] LABS: Magnesium 1.6 mg/dL (1.6-2.6)
[2022-02-08] MEDS: *HR* Heparin 5,000 UNIT/ML VIAL IVP PRN (01:08)
[2022-02-08] MEDS: Heparin 25,000UNIT/250ML 1/2NS 25,000 UNIT/250 ML IV.SOLN IVC SCH (06:34)
[2022-02-08] MEDS: Isosorbide MONOnitrate (24 HR) 30 MG TAB.ER.24H PO SCH (08:56)
[2022-02-08] MEDS: Insulin LISPRO 300 UNITS/3 ML VIAL SUBQ SCH ×4 (08:56→20:07)
[2022-02-08] MEDS: carvediloL 6.25 MG TABLET PO SCH ×2 (08:56→17:11)
[2022-02-08] MEDS: Furosemide 40 MG TABLET PO SCH (08:56)
[2022-02-08] MEDS: Loratadine 10 MG TABLET PO SCH (08:56)
[2022-02-08] MEDS: cloNIDine HCL 0.1 MG TABLET PO SCH ×3 (08:56→20:07)
[2022-02-08] MEDS: NIFEdipine XL (24 HR) 30 MG TAB.ER.24 PO SCH (08:56)
[2022-02-08] MEDS: Fluticasone Propionate Nasal 50 MCG/SPRAY BOTTLE NS SCH (08:57)
[2022-02-08] MEDS: Insulin DETEMIR 100 UNIT/ML X5UNITS SUBQ SCH (09:03)
[2022-02-08] MEDS ORDERED: *HR* Warfarin 5 MG TABLET PO ONE (18:00)
[2022-02-08] MEDS: Gentamicin Oint 15 GM TUBE TP SCH (20:07)
[2022-02-09] MEDS: Heparin 25,000UNIT/250ML 1/2NS 25,000 UNIT/250 ML IV.SOLN IVC SCH ×2 (00:26→17:03)
[2022-02-09 01:08] LABS: Basophils % 0.4 %; Eosinophils # 0.3 K/mcL (0.0-0.6); Hematocrit 28.9 % (37.5-50.1); Hemoglobin 9.4 g/dL (12.9-16.9); Immature Granulocytes % 0.6 % (0-4); Lymphocytes # 2.4 K/mcL (0.6-4.6); Lymphocytes % 27.3 %; Mean Corpuscular HGB Conc 32.5 g/dL (31.6-35.5); Mean Corpuscular Hemoglobin 29.2 pg (28.0-33.3); Mean Corpuscular Volume 89.8 fL (83.0-100.0); Mean Platelet Volume 10.4 fL (9.4-12.4); Monocytes # 0.7 K/mcL (0.0-1.3); Monocytes % 8.2 %; Neutrophils # 5.4 K/mcL (1.6-8.9); Platelet Count 198 K/mcL (140-400); Red Blood Count 3.22 M/mcL (4.19-5.50); Red Cell Distribution Width 13.3 % (11.5-14.5); Segmented Neutrophils % 60.5 %; White Blood Count 8.9 K/mcL (4.3-11.1)
[2022-02-09 01:14] LABS: Prothrombin Time 11.5 Seconds (9.4-12.1)
[2022-02-09 01:26] LABS: Calcium 8.2 mg/dL (8.6-10.3); Magnesium 1.6 mg/dL (1.6-2.6); Phosphorous 5.9 mg/dL (2.7-4.5); Potassium 4.1 mEq/L (3.5-5.1)
[2022-02-09] MEDS: Fluticasone Propionate Nasal 50 MCG/SPRAY BOTTLE NS SCH (08:09)
[2022-02-09] MEDS: carvediloL 6.25 MG TABLET PO SCH ×2 (08:10→17:01)
[2022-02-09] MEDS: Isosorbide MONOnitrate (24 HR) 30 MG TAB.ER.24H PO SCH (08:10)
[2022-02-09] MEDS: NIFEdipine XL (24 HR) 30 MG TAB.ER.24 PO SCH (08:10)
[2022-02-09] MEDS: Furosemide 40 MG TABLET PO SCH (08:10)
[2022-02-09] MEDS: cloNIDine HCL 0.1 MG TABLET PO SCH ×3 (08:10→21:14)
[2022-02-09] MEDS: Loratadine 10 MG TABLET PO SCH (08:10)
[2022-02-09] MEDS: Insulin LISPRO 300 UNITS/3 ML VIAL SUBQ SCH ×4 (08:11→21:14)
[2022-02-09] MEDS: Insulin DETEMIR 100 UNIT/ML X5UNITS SUBQ SCH (08:11)
[2022-02-09] MEDS: *HR* Heparin 5,000 UNIT/ML VIAL IVP PRN (17:02)
[2022-02-09] MEDS ORDERED: *HR* Warfarin 5 MG TABLET PO ONE (18:00)
[2022-02-09] MEDS: Gentamicin Oint 15 GM TUBE TP SCH (21:14)
[2022-02-10 00:36] LABS: Basophils % 0.2 %; Eosinophils # 0.3 K/mcL (0.0-0.6); Eosinophils % 2.7 %; Hematocrit 28.2 % (37.5-50.1); Hemoglobin 9.3 g/dL (12.9-16.9); Immature Granulocytes % 0.6 % (0-4); Lymphocytes # 1.9 K/mcL (0.6-4.6); Mean Corpuscular Hemoglobin 29.2 pg (28.0-33.3); Mean Corpuscular Volume 88.7 fL (83.0-100.0); Mean Platelet Volume 10.4 fL (9.4-12.4); Monocytes # 0.8 K/mcL (0.0-1.3); Monocytes % 7.5 %; Neutrophils # 7.5 K/mcL (1.6-8.9); Platelet Count 219 K/mcL (140-400); Red Blood Count 3.18 M/mcL (4.19-5.50); Red Cell Distribution Width 13.2 % (11.5-14.5); White Blood Count 10.6 K/mcL (4.3-11.1)
[2022-02-10 00:50] LABS: Calcium 8.3 mg/dL (8.6-10.3); Magnesium 1.5 mg/dL (1.6-2.6); Potassium 4.4 mEq/L (3.5-5.1)
[2022-02-10 00:51] LABS: INR 1.1; Prothrombin Time 12.1 Seconds (9.4-12.1)
[2022-02-10] MEDS: *HR* Heparin 5,000 UNIT/ML VIAL IVP PRN (01:01)
[2022-02-10] MEDS: Isosorbide MONOnitrate (24 HR) 30 MG TAB.ER.24H PO SCH (07:16)
[2022-02-10] MEDS: carvediloL 6.25 MG TABLET PO SCH ×2 (07:17→16:53)
[2022-02-10] MEDS: Loratadine 10 MG TABLET PO SCH (07:17)
[2022-02-10] MEDS: Fluticasone Propionate Nasal 50 MCG/SPRAY BOTTLE NS SCH (07:17)
[2022-02-10] MEDS: NIFEdipine XL (24 HR) 30 MG TAB.ER.24 PO SCH (07:17)
[2022-02-10] MEDS: Insulin DETEMIR 100 UNIT/ML X5UNITS SUBQ SCH (07:17)
[2022-02-10] MEDS: cloNIDine HCL 0.1 MG TABLET PO SCH ×3 (07:17→20:29)
[2022-02-10] MEDS: Furosemide 40 MG TABLET PO SCH (07:17)
[2022-02-10] MEDS: Insulin LISPRO 300 UNITS/3 ML VIAL SUBQ SCH ×4 (07:18→20:30)
[2022-02-10] MEDS: *HR* OxyCODONE Immed Rel 5 MG TABLET PO PRN (09:20)
[2022-02-10] MEDS: Heparin 25,000UNIT/250ML 1/2NS 25,000 UNIT/250 ML IV.SOLN IVC SCH (11:10)
[2022-02-10] MEDS ORDERED: *HR* Warfarin 5 MG TABLET PO ONE (18:00)
[2022-02-10] MEDS ORDERED: *HR* Warfarin 7.5 MG TABLET PO ONE (18:00)
[2022-02-10] MEDS: Gentamicin Oint 15 GM TUBE TP SCH (20:29)
[2022-02-11 02:10] LABS: Basophils % 0.3 %; Eosinophils # 0.2 K/mcL (0.0-0.6); Eosinophils % 2.4 %; Hematocrit 28.8 % (37.5-50.1); Hemoglobin 9.5 g/dL (12.9-16.9); Immature Granulocytes % 0.7 % (0-4); Lymphocytes # 1.7 K/mcL (0.6-4.6); Lymphocytes % 17.2 %; Mean Corpuscular Hemoglobin 29.4 pg (28.0-33.3); Mean Corpuscular Volume 89.2 fL (83.0-100.0); Mean Platelet Volume 10.9 fL (9.4-12.4); Monocytes # 0.7 K/mcL (0.0-1.3); Monocytes % 7.2 %; Neutrophils # 7.1 K/mcL (1.6-8.9); Platelet Count 229 K/mcL (140-400); Red Blood Count 3.23 M/mcL (4.19-5.50); Red Cell Distribution Width 13.1 % (11.5-14.5); Segmented Neutrophils % 72.2 %; White Blood Count 9.8 K/mcL (4.3-11.1)
[2022-02-11 02:16] LABS: INR 1.3
[2022-02-11 02:23] LABS: Calcium 8.3 mg/dL (8.6-10.3); Magnesium 1.9 mg/dL (1.6-2.6); Phosphorous 4.8 mg/dL (2.7-4.5); Potassium 4.3 mEq/L (3.5-5.1)
[2022-02-11 04:52] VITALS: O2SAT 96
[2022-02-11] MEDS ORDERED: *HR* Labetalol 20 MG/4 ML SYRINGE IVP ONE (04:57)
[2022-02-11] MEDS: *HR* OxyCODONE Immed Rel 5 MG TABLET PO PRN (05:17)
[2022-02-11] MEDS: Heparin 25,000UNIT/250ML 1/2NS 25,000 UNIT/250 ML IV.SOLN IVC SCH (05:51)
[2022-02-11 06:49] VITALS: BP 175/81; PULSE 70; TEMP 98.4
[2022-02-11] MEDS: Insulin LISPRO 300 UNITS/3 ML VIAL SUBQ SCH (07:51)
[2022-02-11] MEDS: Loratadine 10 MG TABLET PO SCH (07:52)
[2022-02-11] MEDS: NIFEdipine XL (24 HR) 30 MG TAB.ER.24 PO SCH (07:52)
[2022-02-11] MEDS: Furosemide 40 MG TABLET PO SCH (07:52)
[2022-02-11] MEDS: Isosorbide MONOnitrate (24 HR) 30 MG TAB.ER.24H PO SCH (07:52)
[2022-02-11] MEDS: Fluticasone Propionate Nasal 50 MCG/SPRAY BOTTLE NS SCH (07:53)
[2022-02-11] MEDS: Insulin DETEMIR 100 UNIT/ML X5UNITS SUBQ SCH (07:53)
[2022-02-11] MEDS: cloNIDine HCL 0.1 MG TABLET PO SCH (07:53)
[2022-02-11] MEDS: carvediloL 6.25 MG TABLET PO SCH (07:53)
[2022-02-11] MEDS: Sennosides/Docusate Sodium TABLET PO PRN (08:01)
[2022-02-11] MEDS ORDERED: *HR* Warfarin 7.5 MG TABLET PO ONE (18:00)
== END 2022-02-11 08:55 | disposition home or self-care (01) | DRG 673 ==
LOC: EMEROOARM 18:25 → 2ANU 18:25 → SUATTDRO 22:26 → 2ANU 23:04 → SUATTDRO 02-02 15:13
PROVIDERS: ADMIT Family Medicine; ATTEND Pharmacist

== ENCOUNTER 2022-04-03 07:42 | Inpatient (IN) ==
[2022-04-03] MEDS ORDERED: 0.9 % Sodium Chloride 1,000 ML ONE (08:23)
[2022-04-03 09:00] LABS: Prothrombin Time 10.9 Seconds (9.4-12.1)
[2022-04-03] MEDS ORDERED: cloNIDine HCL 0.1 MG TABLET PO ONE (09:07)
[2022-04-03] MEDS: NIFEdipine XL (24 HR) 30 MG TAB.ER.24 PO SCH (09:33)
[2022-04-03] MEDS ORDERED: *HR* Dextrose 50 % in Water (Syg) 50 ML SYRINGE IVP PRN (11:19)
[2022-04-03] MEDS ORDERED: Dextrose Gel 15 GM/37.5 ML TUBE PO PRN ×2 (11:19)
[2022-04-03] MEDS ORDERED: Naloxone 0.4 MG/ML INJ IVP PRN (11:19)
[2022-04-03] MEDS ORDERED: D5% in Water 1,000 ML IVC PRN (11:19)
[2022-04-03] MEDS ORDERED: Ondansetron 4 MG/2 ML VIAL IVP PRN (11:19)
[2022-04-03] MEDS: Insulin LISPRO 300 UNITS/3 ML VIAL SUBQ SCH ×2 (12:09→16:43)
[2022-04-03] MEDS ORDERED: NON-FORMULARY MEDICATION 1 EACH EACH (Amlodipine Besylate 10 MG Tablet) PO SCH (17:45)
[2022-04-03 17:58] LABS: Hepatitis B Surface Antibody 3.48 mIU/mL
[2022-04-03 18:08] LABS: Hepatitis B Surface Antigen Nonreactive (Nonreactive)
[2022-04-03] MEDS ORDERED: Perit. Dialysis with Dex 2.5 % 12,000 ML PERITONEAL ONE (19:00)
[2022-04-03] MEDS: cloNIDine HCL 0.1 MG TABLET PO SCH (20:34)
[2022-04-03] MEDS ORDERED: Insulin LISPRO 300 UNITS/3 ML VIAL SUBQ SCH (21:00)
[2022-04-03] MEDS ORDERED: cloNIDine HCL 0.1 MG TABLET PO SCH (21:00)
[2022-04-04 01:34] LABS: Basophils # 0.1 K/mcL (0.0-0.2); Basophils % 0.4 %; Eosinophils # 0.4 K/mcL (0.0-0.6); Eosinophils % 2.7 %; Hematocrit 33.4 % (37.5-50.1); Hemoglobin 11.1 g/dL (12.9-16.9); Immature Granulocytes % 0.8 % (0-4); Lymphocytes # 2.4 K/mcL (0.6-4.6); Lymphocytes % 16.8 %; Mean Corpuscular HGB Conc 33.2 g/dL (31.6-35.5); Mean Corpuscular Hemoglobin 29.8 pg (28.0-33.3); Mean Corpuscular Volume 89.8 fL (83.0-100.0); Mean Platelet Volume 10.3 fL (9.4-12.4); Monocytes # 0.7 K/mcL (0.0-1.3); Monocytes % 5.1 %; Neutrophils # 10.6 K/mcL (1.6-8.9); Platelet Count 263 K/mcL (140-400); Red Blood Count 3.72 M/mcL (4.19-5.50); Red Cell Distribution Width 13.4 % (11.5-14.5); Segmented Neutrophils % 74.2 %; White Blood Count 14.2 K/mcL (4.3-11.1)
[2022-04-04 01:43] LABS: Prothrombin Time 10.9 Seconds (9.4-12.1)
[2022-04-04 01:45] LABS: Calcium 8.1 mg/dL (8.6-10.3); Potassium 3.3 mEq/L (3.5-5.1)
[2022-04-04] MEDS ORDERED: NIFEdipine Immed Rel 10 MG CAPSULE PO ONE (02:20)
[2022-04-04] MEDS: Insulin LISPRO 300 UNITS/3 ML VIAL SUBQ SCH ×4 (07:54→20:39)
[2022-04-04] MEDS: Cholecalciferol (D-3) 1,000 UNIT (25MCG) TABLET PO SCH (07:59)
[2022-04-04] MEDS: cloNIDine HCL 0.1 MG TABLET PO SCH ×3 (07:59→20:39)
[2022-04-04] MEDS: Fluticasone Propionate Nasal 50 MCG/SPRAY BOTTLE NS SCH (08:00)
[2022-04-04] MEDS: carvediloL 25 MG TABLET PO SCH ×3 (08:00→17:01)
[2022-04-04] MEDS: Loratadine 10 MG TABLET PO SCH (08:00)
[2022-04-04] MEDS: NIFEdipine XL (24 HR) 60 MG TAB.ER.24 PO SCH (08:00)
[2022-04-04] MEDS ORDERED: NIFEdipine XL (24 HR) 30 MG TAB.ER.24 PO SCH (09:00)
[2022-04-04] MEDS: *HR* HYDROcodone/Acet 5/325 mg TABLET PO PRN (10:30)
[2022-04-04] MEDS ORDERED: *HR* Heparin 5,000 UNIT/ML VIAL IVP ONE (11:26)
[2022-04-04] MEDS ORDERED: *HR* Heparin 5,000 UNIT/ML VIAL IVP PRN ×2 (11:26)
[2022-04-04] MEDS ORDERED: cloNIDine HCL 0.1 MG TABLET PO ONE (11:45)
[2022-04-04] MEDS: Furosemide 40 MG TABLET PO SCH ×2 (11:51→16:25)
[2022-04-04] MEDS: Heparin 25,000UNIT/250ML 1/2NS 25,000 UNIT/250 ML IV.SOLN IVC SCH (12:53)
[2022-04-04 14:10] LABS: INR 1.2; Prothrombin Time 12.9 Seconds (9.4-12.1)
[2022-04-04 14:54] LABS: Hematocrit 30.4 % (37.5-50.1); Hemoglobin 9.8 g/dL (12.9-16.9); Mean Corpuscular HGB Conc 32.2 g/dL (31.6-35.5); Mean Corpuscular Hemoglobin 29.7 pg (28.0-33.3); Mean Corpuscular Volume 92.1 fL (83.0-100.0); Mean Platelet Volume 10.7 fL (9.4-12.4); Platelet Count 272 K/mcL (140-400); Red Cell Distribution Width 13.4 % (11.5-14.5); White Blood Count 13.6 K/mcL (4.3-11.1)
[2022-04-04] MEDS ORDERED: Perit. Dialysis with Dex 2.5 % 12,000 ML PERITONEAL ONE (19:00)
[2022-04-04] MEDS ORDERED: Insulin DETEMIR 100 UNIT/ML X5UNITS SUBQ SCH (21:00)
[2022-04-05 02:58] LABS: Basophils # 0.1 K/mcL (0.0-0.2); Basophils % 0.4 %; Eosinophils # 0.3 K/mcL (0.0-0.6); Eosinophils % 2.5 %; Hematocrit 31.1 % (37.5-50.1); Immature Granulocytes % 0.9 % (0-4); Lymphocytes # 2.6 K/mcL (0.6-4.6); Lymphocytes % 22.7 %; Mean Corpuscular HGB Conc 32.2 g/dL (31.6-35.5); Mean Corpuscular Hemoglobin 29.6 pg (28.0-33.3); Mean Platelet Volume 10.4 fL (9.4-12.4); Monocytes # 0.7 K/mcL (0.0-1.3); Monocytes % 5.9 %; Neutrophils # 7.8 K/mcL (1.6-8.9); Platelet Count 232 K/mcL (140-400); Red Blood Count 3.38 M/mcL (4.19-5.50); Red Cell Distribution Width 13.8 % (11.5-14.5); Segmented Neutrophils % 67.6 %; White Blood Count 11.6 K/mcL (4.3-11.1)
[2022-04-05 03:18] LABS: Magnesium 1.6 mg/dL (1.6-2.6); Phosphorous 4.3 mg/dL (2.7-4.5); Potassium 3.5 mEq/L (3.5-5.1)
[2022-04-05] MEDS: Insulin LISPRO 300 UNITS/3 ML VIAL SUBQ SCH ×4 (07:30→20:21)
[2022-04-05] MEDS: Insulin DETEMIR 100 UNIT/ML X5UNITS SUBQ SCH ×2 (07:44→20:21)
[2022-04-05] MEDS: NIFEdipine XL (24 HR) 60 MG TAB.ER.24 PO SCH (07:46)
[2022-04-05] MEDS: Cholecalciferol (D-3) 1,000 UNIT (25MCG) TABLET PO SCH (07:46)
[2022-04-05] MEDS: *HR* HYDROcodone/Acet 5/325 mg TABLET PO PRN (07:46)
[2022-04-05] MEDS: Loratadine 10 MG TABLET PO SCH (07:46)
[2022-04-05] MEDS: cloNIDine HCL 0.1 MG TABLET PO SCH ×3 (07:46→21:45)
[2022-04-05] MEDS: carvediloL 25 MG TABLET PO SCH ×2 (07:47→17:24)
[2022-04-05] MEDS: Fluticasone Propionate Nasal 50 MCG/SPRAY BOTTLE NS SCH (07:47)
[2022-04-05] MEDS: Heparin 25,000UNIT/250ML 1/2NS 25,000 UNIT/250 ML IV.SOLN IVC SCH (08:16)
[2022-04-05] MEDS ORDERED: Nitroglycerin 1,000 MCG/5 ML VIAL IV ONE (10:52)
[2022-04-05] MEDS ORDERED: Iopamidol - 370 200 ML INFUS..BTL ONE (10:52)
[2022-04-05] MEDS ORDERED: 0.9 % Sodium Chloride 2,000 ML ONE (10:52)
[2022-04-05] MEDS ORDERED: *HR* Heparin 10,000 UNIT/10 ML VIAL ONE (10:52)
[2022-04-05] MEDS ORDERED: Heparin 1,000 UNITS/500 mL 500 ML ONE (10:52)
[2022-04-05] MEDS ORDERED: *HR* Midazolam HCl 2 MG/2 ML VIAL ONE (11:44)
[2022-04-05] MEDS ORDERED: *HR* FentaNYL (PF) 100 MCG/2 ML VIAL ONE (11:44)
[2022-04-05] MEDS ORDERED: Warfarin perPT PO PRN (18:00)
[2022-04-05] MEDS ORDERED: *HR* Heparin 5,000 UNIT/ML VIAL SQ SCH (18:00)
[2022-04-05] MEDS ORDERED: *HR* Warfarin 5 MG TABLET PO SCH (18:00)
[2022-04-05] MEDS ORDERED: Perit. Dialysis with Dex 2.5 % 12,000 ML PERITONEAL ONE (19:00)
[2022-04-06 02:00] LABS: Basophils % 0.4 %; Eosinophils # 0.3 K/mcL (0.0-0.6); Eosinophils % 3.2 %; Hematocrit 30.3 % (37.5-50.1); Hemoglobin 9.7 g/dL (12.9-16.9); Immature Granulocytes % 0.5 % (0-4); Lymphocytes # 1.4 K/mcL (0.6-4.6); Lymphocytes % 13.4 %; Mean Corpuscular Hemoglobin 29.3 pg (28.0-33.3); Mean Corpuscular Volume 91.5 fL (83.0-100.0); Mean Platelet Volume 10.3 fL (9.4-12.4); Monocytes # 0.8 K/mcL (0.0-1.3); Monocytes % 7.6 %; Neutrophils # 7.8 K/mcL (1.6-8.9); Platelet Count 231 K/mcL (140-400); Red Blood Count 3.31 M/mcL (4.19-5.50); Red Cell Distribution Width 13.3 % (11.5-14.5); Segmented Neutrophils % 74.9 %; White Blood Count 10.4 K/mcL (4.3-11.1)
[2022-04-06 02:05] LABS: Prothrombin Time 10.8 Seconds (9.4-12.1)
[2022-04-06 02:13] LABS: Calcium 7.9 mg/dL (8.6-10.3); Magnesium 1.7 mg/dL (1.6-2.6); Phosphorous 4.9 mg/dL (2.7-4.5); Potassium 3.6 mEq/L (3.5-5.1)
[2022-04-06] MEDS: Insulin LISPRO 300 UNITS/3 ML VIAL SUBQ SCH (08:00)
[2022-04-06] MEDS: Insulin DETEMIR 100 UNIT/ML X5UNITS SUBQ SCH (08:00)
[2022-04-06] MEDS: Cholecalciferol (D-3) 1,000 UNIT (25MCG) TABLET PO SCH (08:00)
[2022-04-06] MEDS: NIFEdipine XL (24 HR) 60 MG TAB.ER.24 PO SCH (08:00)
[2022-04-06] MEDS: carvediloL 25 MG TABLET PO SCH (08:01)
[2022-04-06] MEDS: Loratadine 10 MG TABLET PO SCH (08:01)
[2022-04-06] MEDS: cloNIDine HCL 0.1 MG TABLET PO SCH (08:01)
[2022-04-06] MEDS ORDERED: Aspirin 81 MG TAB.CHEW PO SCH (09:00)
[2022-04-06 09:03] VITALS: BP 133/73; PULSE 74; TEMP 98.7; O2SAT 97
[2022-04-06] MEDS: Fluticasone Propionate Nasal 50 MCG/SPRAY BOTTLE NS SCH (09:23)
== END 2022-04-06 13:07 | disposition home or self-care (01) | DRG 286 ==
LOC: 2ANU 07:42 → INVDIALAB 07:42 → SUATTDRO 10:57 → 2ANU 10:57
PROVIDERS: ADMIT Student in an Organized Health Care Education/Training Program; ATTEND Pharmacist